=== PATIENT | female | born 1990 | race Caucasian/White ===

== ENCOUNTER → 2016-03-26 | Outpatient (CLI) | payer SELFPAY | LOC: MOB LAB 14:07 | PROVIDERS: ATTEND Obstetrics & Gynecology | DX: Z36 Encounter for antenatal screening of mother (principal); Z3A.36 36 weeks gestation of pregnancy | CPT/HCPCS: 87150 ==

== ENCOUNTER 2016-04-11 13:18 | Inpatient (IN) | payer BC ==
[2016-04-11] MEDS ORDERED: NORMAL SALINE 10 ML SYRINGE FLUSH IVP PRN ×3 (13:42→23:48)
[2016-04-11] MEDS ORDERED: NALOXONE 0.4 MG/1 ML VIAL IVP PRN ×2 (14:22→20:40)
[2016-04-11] MEDS ORDERED: TERBUTALINE SULFATE 1 MG/1 ML SDV SUBCUT PRN (14:22)
[2016-04-11] MEDS ORDERED: CefOXitin Inj 2 GM in Sodium Chloride 0.9% 100 ML IV PRN (14:22)
[2016-04-11] MEDS ORDERED: Naloxone Inj 0.01 MG in Normal Saline Flush 1 ML IVP PRN ×2 (14:22→20:40)
[2016-04-11] MEDS ORDERED: Metoclopramide Inj 10 MG/2 ML VIAL IV PRN (14:22)
[2016-04-11] MEDS ORDERED: OXYTOCIN 10 UNIT/1 ML IM PRN (14:22)
[2016-04-11] MEDS ORDERED: Famotidine Inj 20 MG in Normal Saline Flush 10 ML IVP PRN ×4 (14:22)
[2016-04-11] MEDS ORDERED: Carboprost Inj 250 MCG/ML AMP IM PRN ×2 (14:22→23:48)
[2016-04-11] MEDS ORDERED: ePHEDrine Inj 5 MG in Normal Saline Flush 1 ML IVP PRN (14:22)
[2016-04-11] MEDS ORDERED: BUTORPHANOL TARTRATE 2 MG/1 ML VIAL IVP PRN ×2 (14:22→20:40)
[2016-04-11] MEDS ORDERED: Nalbuphine Inj 20 MG/ML Ampule IVP PRN ×3 (14:22→23:48)
[2016-04-11] MEDS ORDERED: Lidocaine 1% 10 MG/ML - 20 ML VIAL SUBCUT PRN (14:22)
[2016-04-11] MEDS ORDERED: CITRIC ACID/SODIUM CITRATE 30 ML CUP PO PRN (14:22)
[2016-04-11] MEDS ORDERED: METHYLERGONOVINE MALEATE 0.2 MG/1 ML VIAL IM PRN ×2 (14:22→23:48)
[2016-04-11] MEDS ORDERED: ONDANSETRON 4 MG/2 ML VIAL IVP PRN ×2 (14:22→23:48)
[2016-04-11] MEDS ORDERED: fentaNYL Inj 100 MCG/2 ML VIAL IV PRN (14:22)
[2016-04-11] MEDS ORDERED: Phenylephrine Inj 50 MCG in Normal Saline Flush 0.5 ML IVP PRN ×2 (14:22→20:40)
[2016-04-11] MEDS ORDERED: diphenhydrAMINE 50 MG/1 ML VIAL IVP PRN ×3 (14:22→23:48)
[2016-04-11] MEDS ORDERED: CALCIUM CARBONATE 500 MG (TUMS) CHEWABLE TABLET PO PRN ×2 (14:22→23:48)
[2016-04-11] MEDS ORDERED: LIDOCAINE W/ SODIUM BICARB 0.5 ML SYR SUBD PRN (14:22)
[2016-04-11] MEDS ORDERED: MISOPROSTOL 200 MCG TABLET RECTAL PRN (14:22)
[2016-04-11] MEDS ORDERED: Oxytocin 20 Units + LR 1,000 ML IV SCH ×3 (14:30→23:48)
[2016-04-11 14:49] LABS: HEMATOCRIT 33.3 % (37.0-47.0); HEMOGLOBIN 10.5 g/dL (12.0-16.0); MEAN CORPUSCULAR HEMOGLOBIN 24.4 PG (27-31); MEAN CORPUSCULAR HGB CONC 31.5 g/dL (33-37); MEAN PLATELET VOLUME 10.5 FL (7.4-12.2); RDW COEFFICIENT OF VARIATION 14.6 % (11.5-14.5); RED BLOOD COUNT 4.3 10^6/uL (4.20-5.40); WHITE BLOOD COUNT 9.66 10^3/uL (4.8-10.8)
[2016-04-11] MEDS: Lactated Ringers-OB Dept 1,000 ML PRIMARY IV SCH ×2 (16:00→18:39)
[2016-04-11] MEDS: ePHEDrine Inj 5 MG in Normal Saline Flush 1 ML IVP PRN ×2 (20:00→20:20)
[2016-04-11] MEDS ORDERED: Fent/Bupiv 2mcg/0.0625% Epid 250 ML ONE (20:03)
--- NOTE | 2016-04-11 20:20 | CRNA.PROCE ---
Central Neuraxis Block [facility] - - Safety Measures: Site Verified - - Type of Block: Epidural (For trial of Labor) Reason for Block: Analgesia Moniters Used During Block: SPO2, NIBP Sedation Used - Enter Amount Used in Comment Field: Fentanyl (mcg): Yes (100 mcgs) Skin Prep Used: Betadine (Betadine times 3) Draped: Yes Skin Infiltration - Enter Amount Used in Comment Field: 1% Xylocaine (mL): Yes ( 1.5 ml) Spinal Needle Used: 18 Hustead 80 mm (RAAD with saline) Local Anesthetic - Enter Amount Used in Comment Field: 1.5 % Xylocaine with Epinephrine 1:200,000 (mL): Yes (4.0) Number of Centimeters Catheter Threaded: 3.5 Bioclusive Dressing Applied: Yes (skin prep under op site) - - Additional Details: Pitocin augmented labor. Membranes spontaneously ruptured at home earlier today. e-natals reviewed, unremarkable. Started 0.0625% bupivicaine plus 2 mcgs Fentanyl per ml at 2030 via pump. See orders. Mamta Ramirez MS, DIRECTOR OF STATE
[2016-04-11] MEDS ORDERED: fentaNYL 2 MCG/BUPIVACAINE 0.0625%/NS 0.9% 250 ML BAG EPIDURAL ONE (20:38)
--- NOTE | 2016-04-11 23:17 | OB.DEL.SUM ---
Delivery Note Delivery Summary: The patient presented at 39 1/7 weeks EGA with SROM at home this afternoon around 1300. Cervix was 2 cm on admission. She was started on pitocin and progressed into active labor. Epidural analgesia was administered when pt. requested. She achieved complete dilation and pushed twice to of a viable female , Apgars 8/9, 7# 15oz, from OA position over bilateral para-labial skin lacerations. The placenta delivered spontaneously, intact, with a 3 vessel cord. Repair of the skin lacerations was made with 3-0 Vicryl Rapide suture after local infiltration with 1% lidocaine. EBL 150 ml. There were no complications. Mother and baby tolerated delivery well.
[2016-04-11] MEDS ORDERED: DIPH,PERTUSS,TET(ADACEL) VAC/PF 0.5 ML (Tdap) IM SCH (23:48)
[2016-04-11] MEDS ORDERED: Methylergonovine Tab 0.2 MG TAB PO PRN (23:48)
[2016-04-11] MEDS ORDERED: BENZOCAINE/MENTHOL SPRAY 56 GM BOTTLE TOPICAL PRN (23:48)
[2016-04-11] MEDS ORDERED: LANOLIN HPA 40 GM TUBE TOPICAL PRN (23:48)
[2016-04-11] MEDS ORDERED: ACETAMINOPHEN 325 MG TABLET PO PRN (23:48)
[2016-04-11] MEDS ORDERED: Ondansetron ODT Tab 4 MG TAB PO PRN (23:48)
[2016-04-11] MEDS ORDERED: diphenhydrAMINE 25 MG CAPSULE PO PRN (23:48)
[2016-04-11] MEDS ORDERED: GLYCERIN/WITCH HAZEL 1 BOX TOPICAL PRN (23:48)
[2016-04-11] MEDS ORDERED: MISOPROSTOL 200 MCG TABLET RECTAL ONE (23:48)
[2016-04-11] MEDS ORDERED: OXYTOCIN 10 UNIT/1 ML IM ONE (23:48)
[2016-04-12] MEDS: IBUPROFEN 800 MG TABLET PO PRN ×3 (00:02→15:28)
[2016-04-12 06:16] LABS: HEMATOCRIT 32.1 % (37.0-47.0); MEAN CORPUSCULAR HEMOGLOBIN 24.2 PG (27-31); MEAN CORPUSCULAR HGB CONC 31.2 g/dL (33-37); RDW COEFFICIENT OF VARIATION 14.7 % (11.5-14.5); RED BLOOD COUNT 4.14 10^6/uL (4.20-5.40); WHITE BLOOD COUNT 14.6 10^3/uL (4.8-10.8)
[2016-04-12] MEDS ORDERED: Prenatal Multivitamin Tab 1 TAB TAB PO SCH (09:00)
[2016-04-12] MEDS ORDERED: DOCUSATE 100 MG CAPSULE PO SCH (09:00)
--- NOTE | 2016-04-12 10:57 | DCSUMMARY ---
Hospitalization Summary Admit Date: 04/11/16 Discharge Date: 04/12/16 Primary Diagnosis:: Term , Delivered. Delivery Type: Vaginal Hospital Course: Normal, uncompicated labor, delivery, and course. / Postop Complications: None Complications: None Exam - Vitals Vital Signs: Vital Signs Temperature 97.4 F Temperature Source Oral Pulse Rate [Pulse Oximeter] 68 Pulse Rate 81 Respiratory Rate [Contractions 18 ] Respiratory Rate 14 Blood Pressure [Left Arm] 109/59 Blood Pressure 108/50 Pulse Ox 100 Oxygen Delivery Method Room Air Height 5 ft 5.6 in Weight 223 lb 0.4 oz
[2016-04-12 16:28] VITALS: RESP 16; TEMP 98
== END 2016-04-12 15:55 | disposition home or self-care (01) | DRG 775 ==
LOC: OBOP 13:18 → OBIP 14:22
PROVIDERS: ADMIT Obstetrics & Gynecology; ATTEND Obstetrics & Gynecology
PROC: 10E0XZZ Delivery of Products of Conception, External Approach (ICD-10-PCS; principal; 2016-04-11)
DX: O80 Encounter for full-term uncomplicated delivery (principal); Z3A.39 39 weeks gestation of pregnancy; Z37.0 Single live birth
CPT/HCPCS: 36415; 81003; 84112; 85027; J2001; J3010; J3490; J7120

== ENCOUNTER 2019-02-18 05:03 | Inpatient (IN) ==
[2019-02-18] MEDS ORDERED: Lactated Ringers 1,000 ML PRIMARY IV ONE (05:49)
[2019-02-18] MEDS ORDERED: Carboprost Inj 250 MCG/ML AMP IM PRN (05:50)
[2019-02-18] MEDS ORDERED: Nalbuphine Inj 20 MG/ML Ampule IVP PRN ×2 (05:50→11:53)
[2019-02-18] MEDS ORDERED: OXYTOCIN 10 UNIT/1 ML IM PRN (05:50)
[2019-02-18] MEDS ORDERED: ONDANSETRON 4 MG/2 ML VIAL IVP PRN ×2 (05:50→11:53)
[2019-02-18] MEDS ORDERED: NALOXONE 0.4 MG/1 ML VIAL IVP PRN (05:50)
[2019-02-18] MEDS ORDERED: MISOPROSTOL 200 MCG TABLET RECTAL PRN (05:50)
[2019-02-18] MEDS ORDERED: CALCIUM CARBONATE 500 MG (TUMS) CHEWABLE TABLET PO PRN ×2 (05:50→11:53)
[2019-02-18] MEDS ORDERED: Metoclopramide Inj 10 MG/2 ML VIAL IV PRN (05:50)
[2019-02-18] MEDS ORDERED: Lidocaine 1% 10 MG/ML - 20 ML VIAL SUBCUT PRN (05:50)
[2019-02-18] MEDS ORDERED: fentaNYL Inj 100 MCG/2 ML VIAL IV PRN (05:50)
[2019-02-18] MEDS ORDERED: Naloxone Inj 0.01 MG in Sodium Chloride 0.9% vial 1 ML IVP PRN (05:50)
[2019-02-18] MEDS ORDERED: CefOXitin Inj 2 GM in Sodium Chloride 0.9% 100 ML IV PRN (05:50)
[2019-02-18] MEDS ORDERED: Phenylephrine Inj 50 MCG in Sodium Chloride 0.9% vial 0.5 ML IVP PRN (05:50)
[2019-02-18] MEDS ORDERED: LIDOCAINE W/ SODIUM BICARB 0.5 ML SYR SUBD PRN (05:50)
[2019-02-18] MEDS ORDERED: METHYLERGONOVINE MALEATE 0.2 MG/1 ML VIAL IM PRN (05:50)
[2019-02-18] MEDS ORDERED: LIDOCAINE HCL 2 % 10 ML JELLY URO-JECT TOPICAL PRN ×2 (05:50→11:53)
[2019-02-18] MEDS ORDERED: TERBUTALINE SULFATE 1 MG/1 ML SDV SUBCUT PRN (05:50)
[2019-02-18] MEDS ORDERED: BUTORPHANOL TARTRATE 2 MG/1 ML VIAL IVP PRN (05:50)
[2019-02-18] MEDS ORDERED: FAMOTIDINE 20 MG/2 ML VIAL IVP PRN ×2 (05:50)
[2019-02-18] MEDS ORDERED: CITRIC ACID/SODIUM CITRATE 30 ML CUP PO PRN (05:50)
[2019-02-18] MEDS ORDERED: diphenhydrAMINE 50 MG/1 ML VIAL IVP PRN ×2 (05:50→11:53)
[2019-02-18 06:00] LABS: Hematocrit [HCT] 36.2 % (37.0-47.0); Hemoglobin [HGB] 11.6 g/dL (12.0-16.0); MEAN CORPUSCULAR VOLUME 81.7 FL (81-99); MEAN PLATELET VOLUME 10.9 FL (7.4-12.2); RED BLOOD COUNT 4.43 10^6/uL (4.20-5.40)
[2019-02-18] MEDS ORDERED: Oxytocin 20 Units + LR 20 UNIT/1,000 ML BAG IV SCH ×3 (06:00→11:53)
[2019-02-18] MEDS: Lactated Ringers-OB Dept 1,000 ML PRIMARY IV SCH ×2 (06:05→08:38)
[2019-02-18] MEDS ORDERED: Lidocaine/Epi Inj 1.5% 5 ML AMPUL EPIDURAL ONE (08:37)
[2019-02-18] MEDS ORDERED: fentaNYL 2 MCG/BUPIVACAINE 0.0625%/NS 0.9% 250 ML BAG EPIDURAL SCH (09:00)
[2019-02-18] MEDS ORDERED: Sodium Chloride 0.9% vial 10 ML ONE (09:39)
[2019-02-18] MEDS ORDERED: BUPivacaine Inj 0.25% PF - 10ml vial ONE (09:39)
[2019-02-18] MEDS ORDERED: HYDROcodone-APAP 5 MG -325 MG TABLET PO PRN (11:53)
[2019-02-18] MEDS ORDERED: LANOLIN HPA 40 GM TUBE TOPICAL PRN (11:53)
[2019-02-18] MEDS ORDERED: BENZOCAINE/MENTHOL SPRAY 56 GM BOTTLE TOPICAL PRN (11:53)
[2019-02-18] MEDS ORDERED: diphenhydrAMINE 25 MG CAPSULE PO PRN (11:53)
[2019-02-18] MEDS ORDERED: Ondansetron ODT Tab 4 MG TAB PO PRN (11:53)
[2019-02-18] MEDS ORDERED: ACETAMINOPHEN 325 MG TABLET PO PRN (11:53)
[2019-02-18] MEDS ORDERED: DIPH,PERTUSS,TET(ADACEL) VAC/PF 0.5 ML (Tdap) IM ONE (11:53)
[2019-02-18] MEDS ORDERED: GLYCERIN/WITCH HAZEL 1 BOX TOPICAL PRN (11:53)
[2019-02-18] MEDS ORDERED: Lidocaine 1% 10 MG/ML - 20 ML VIAL INTRADERM PRN (11:53)
[2019-02-18] MEDS ORDERED: IBUPROFEN 800 MG TABLET PO PRN (11:53)
[2019-02-19 05:31] LABS: Hematocrit [HCT] 37.6 % (37.0-47.0); Hemoglobin [HGB] 11.9 g/dL (12.0-16.0); MEAN CORPUSCULAR HGB CONC 31.6 g/dL (33-37); MEAN CORPUSCULAR VOLUME 83.4 FL (81-99); MEAN PLATELET VOLUME 10.8 FL (7.4-12.2); RED BLOOD COUNT 4.51 10^6/uL (4.20-5.40)
[2019-02-19 08:29] VITALS: BP 126/68; RESP 18; TEMP 98.1; O2SAT 96
[2019-02-19] MEDS ORDERED: DOCUSATE 100 MG CAPSULE PO SCH (09:00)
[2019-02-19] MEDS ORDERED: Prenatal Multivitamin Tab 1 TAB TAB PO SCH (09:00)
[2019-02-19] MEDS ORDERED: IBUPROFEN 800 MG TABLET PO SCH (09:45)
== END 2019-02-19 11:53 | disposition home or self-care (01) | DRG 807 ==
LOC: OBIP 05:03
PROVIDERS: ADMIT Obstetrics & Gynecology; ATTEND Obstetrics & Gynecology